=== PATIENT | female | born 1965 | race Caucasian/White ===

== ENCOUNTER 2018-09-27 19:43 | Inpatient (IN) | payer MEDICAID ==
[~2018-09-27] VITALS: Ht 162.6 cm; Wt 71.2 kg
[2018-09-27 19:45] VITALS: BP_SYST 140
[2018-09-27] MEDS ORDERED: LORazepam 2 MG/ML VIAL (FOR ER USE) IM ONE (20:15)
[2018-09-27 20:42] LABS: BLOOD, URINE 2+ (NEGATIVE); CLARITY/URINE SL CLOUDY (CLEAR); GLUCOSE,URINE NEGATIVE (NEGATIVE); KETONES,URINE 1+ (NEGATIVE); NITRITE, URINE NEGATIVE (NEGATIVE); PH,URINE 6.5 (5.0-8.0); PROTEIN URINE 2+ (NEGATIVE)
[2018-09-27 20:56] LABS: BILIRUBIN,URINE NEGATIVE (NEGATIVE); COLOR,URINE AMBER (YELLOW); LEUKOCYTE ESTERASE ,URINE 1+ (NEGATIVE)
[2018-09-27 20:57] LABS: RBC,URINE 0-3 /HPF (0-3)
[2018-09-27 20:58] LABS: BACTERIA,URINE MANY /HPF (None Seen); MUCUS,URINE None Seen /LPF (None Seen)
[2018-09-27 21:04] LABS: BARBITURATE, URINE NEGATIVE (NEG <=200); BENZODIAZEPINE, URINE NEGATIVE (NEG <=150); CANNABINOID, URINE NEGATIVE (NEG <=50); COCAINE, URINE NEGATIVE (NEG <=150); METHAMPHETAMINES SCREEN,URINE NEGATIVE (NEG <=500); OPIATE, URINE NEGATIVE (NEG <=100); PHENCYCLIDINE SCREEN,URINE NEGATIVE (NEG <=25); UR TRICYCLIC ANTIDEPRESSANTS POSITIVE (NEG <=300); URINE AMPHETAMINE POSITIVE (NEG <=500); URINE METHADONE NEGATIVE (NEG <=200); URINE OXYCODONE SCREEN NEGATIVE (NEG <=100); URINE PROPOXYPHENE SCREEN NEGATIVE (NEG <=300)
[2018-09-27 21:11] LABS: ANION GAP 13 (5-15); BASOPHILS % (AUTO) 0.4 % (0.0-2.0); CALCIUM 9.6 mg/dL (8.4-11.0); CHLORIDE 106 mmol/L (98-107); CREATININE 0.96 mg/dL (0.55-1.30); EOSINOPHILS % (AUTO) 0.1 % (0.0-4.0); GLUCOSE 169 mg/dL (70-99); HEMATOCRIT 28.3 % (36-48); HEMOGLOBIN 9.1 g/dL (12.0-16.0); LYMPHOCYTES # (AUTO) 0.9 K/uL (1.0-5.5); LYMPHOCYTES % (AUTO) 7.6 % (20.5-51.5); MEAN CORPUSCULAR HEMOGLOBIN 21 pg (27-31); MEAN CORPUSCULAR HGB CONC 32 % (32-36); MEAN CORPUSCULAR VOLUME 66 fL (79.0-98.0); MONOCYTES # (AUTO) 0.9 K/uL (0.0-1.0); MONOCYTES % (AUTO) 7.3 % (1.7-9.3); NEUTROPHILS % (AUTO) 84.6 % (40.0-70.0); PLATELET COUNT (AUTO) 273 K/uL (130-430); RED BLOOD CELL COUNT(AUTO) 4.31 MIL/uL (4.2-6.2); SODIUM SERUM 145 mmol/L (136-145); UREA NITROGEN, BLOOD 41 mg/dL (8-21); WHITE BLOOD COUNT (AUTO) 11.8 K/uL (4.8-10.8)
[2018-09-27 21:14] LABS: GFR AFRICAN AMERICAN 78 mL/min (>90); POTASSIUM 2.9 mmol/L (3.5-5.1)
[2018-09-27 21:17] LABS: ALANINE AMINOTRANSFERASE 98 U/L (12-78); ALBUMIN 4.2 g/dL (3.4-4.8); ASPARTATE AMINOTRANSFERASE 181 U/L (10-37)
[2018-09-27 21:21] LABS: ACETAMINOPHEN < 1 ug/mL (1-30); ALCOHOL, BLOOD < 3 mg/dL (<10)
[2018-09-28] MEDS ORDERED: POTASSIUM CHLORIDE 20 MEQ TAB.PRT.SR PO ONE ×2 (06:15→14:30)
[2018-09-28] MEDS ORDERED: cefTRIAXone 1 GM VIAL IM ONE (06:30)
[2018-09-28] MEDS ORDERED: NACL 0.9% 1,000 ML IV ONE (10:15)
[2018-09-28] MEDS ORDERED: LORazepam 2 MG/ML VIAL (FOR ER USE) IVP ONE ×2 (10:45→12:00)
[2018-09-28] MEDS ORDERED: DIPHENHYDRAMINE INJ 50 MG/ML VIAL IM ONE (12:00)
[2018-09-28 13:50] VITALS: BP_SYST 129
[2018-09-28] MEDS ORDERED: THIAMINE HCL 100 MG TABLET PO ONE (14:30)
[2018-09-28] MEDS ORDERED: LORazepam 1 MG TABLET PO ONE (14:30)
[2018-09-28] MEDS ORDERED: LORazepam 2 MG/ML VIAL IVP PRN (14:30)
[2018-09-28 15:02] LABS: CALCIUM 9.1 mg/dL (8.4-11.0); CREATININE 0.66 mg/dL (0.55-1.30); POTASSIUM 3.3 mmol/L (3.5-5.1)
[2018-09-28 15:06] LABS: BASOPHILS % (AUTO) 0.5 % (0.0-2.0); EOSINOPHILS # (AUTO) 0.2 K/uL (0.0-0.4); EOSINOPHILS % (AUTO) 2.8 % (0.0-4.0); HEMATOCRIT 28.4 % (36-48); HEMOGLOBIN 9.1 g/dL (12.0-16.0); LYMPHOCYTES # (AUTO) 1.5 K/uL (1.0-5.5); LYMPHOCYTES % (AUTO) 18.7 % (20.5-51.5); MEAN CORPUSCULAR HEMOGLOBIN 21 pg (27-31); MEAN CORPUSCULAR HGB CONC 32 % (32-36); MEAN CORPUSCULAR VOLUME 66 fL (79.0-98.0); MONOCYTES # (AUTO) 0.6 K/uL (0.0-1.0); MONOCYTES % (AUTO) 6.8 % (1.7-9.3); NEUTROPHILS # (AUTO) 5.9 K/uL (1.8-7.7); NEUTROPHILS % (AUTO) 71.2 % (40.0-70.0); PLATELET COUNT (AUTO) 263 K/uL (130-430); RED CELL DISTRIBUTION WIDTH 17.2 % (9.0-15.0); WHITE BLOOD COUNT (AUTO) 8.3 K/uL (4.8-10.8)
[2018-09-28] MEDS: LR 1,000 ML IV SCH (15:23)
[2018-09-28] MEDS: QUEtiapine FUMARATE 25 MG TABLET PO SCH (18:31)
[2018-09-28 20:00] VITALS: BP_SYST 122
[2018-09-28] MEDS: LORazepam 1 MG TABLET PO SCH (20:06)
[2018-09-28] MEDS: POTASSIUM CHLORIDE 20 MEQ TAB.PRT.SR PO SCH (20:07)
[2018-09-29 00:10] VITALS: BP_SYST 110
[2018-09-29] MEDS: LR 1,000 ML IV SCH ×3 (00:44→21:41)
[2018-09-29 06:07] LABS: ALBUMIN 2.9 g/dL (3.4-4.8); CALCIUM 8.4 mg/dL (8.4-11.0); CREATININE 0.64 mg/dL (0.55-1.30); FREE T4 (FREE THYROXINE) 0.6 ng/dL (0.6-1.6); POTASSIUM 3.6 mmol/L (3.5-5.1); TOTAL BILIRUBIN 0.8 mg/dL (0.0-1.0)
[2018-09-29 06:10] LABS: BASOPHILS % (AUTO) 0.7 % (0.0-2.0); EOSINOPHILS # (AUTO) 0.4 K/uL (0.0-0.4); EOSINOPHILS % (AUTO) 6.8 % (0.0-4.0); HEMATOCRIT 29.1 % (36-48); HEMOGLOBIN 9.3 g/dL (12.0-16.0); LYMPHOCYTES # (AUTO) 1.5 K/uL (1.0-5.5); LYMPHOCYTES % (AUTO) 26.5 % (20.5-51.5); MEAN CORPUSCULAR HEMOGLOBIN 21 pg (27-31); MEAN CORPUSCULAR HGB CONC 32 % (32-36); MEAN CORPUSCULAR VOLUME 66 fL (79.0-98.0); MONOCYTES # (AUTO) 0.5 K/uL (0.0-1.0); NEUTROPHILS # (AUTO) 3.2 K/uL (1.8-7.7); PLATELET COUNT (AUTO) 248 K/uL (130-430); RED BLOOD CELL COUNT(AUTO) 4.38 MIL/uL (4.2-6.2); RED CELL DISTRIBUTION WIDTH 17.3 % (9.0-15.0)
[2018-09-29 06:56] LABS: WHITE BLOOD COUNT (AUTO) 5.6 K/uL (4.8-10.8)
[2018-09-29 08:19] VITALS: BP_SYST 110
[2018-09-29] MEDS: POTASSIUM CHLORIDE 20 MEQ TAB.PRT.SR PO SCH ×2 (08:23→21:42)
[2018-09-29] MEDS: FOLIC ACID 1 MG TABLET PO SCH (08:23)
[2018-09-29] MEDS: THIAMINE HCL 100 MG TABLET PO SCH (08:23)
[2018-09-29] MEDS: LORazepam 1 MG TABLET PO SCH ×2 (08:24→21:42)
[2018-09-29 13:13] VITALS: BP_SYST 129
[2018-09-29] MEDS ORDERED: CIPROFLOXACIN HCL 500 MG TABLET PO ONE (13:30)
[2018-09-29] MEDS: cefTRIAXone 1 GM in D5W 50 ML IV SCH (14:04)
[2018-09-29 17:08] VITALS: BP_SYST 134
[2018-09-29] MEDS: QUEtiapine FUMARATE 25 MG TABLET PO SCH ×2 (17:33→21:42)
[2018-09-29 21:24] VITALS: BP_SYST 130
[2018-09-29] MEDS: CIPROFLOXACIN HCL 500 MG TABLET PO SCH (21:42)
[2018-09-30 00:46] VITALS: BP_SYST 124
[2018-09-30] MEDS: LR 1,000 ML IV SCH (06:59)
[2018-09-30 07:58] VITALS: BP_SYST 134
[2018-09-30] MEDS: FOLIC ACID 1 MG TABLET PO SCH (08:46)
[2018-09-30] MEDS: THIAMINE HCL 100 MG TABLET PO SCH (08:46)
[2018-09-30] MEDS: POTASSIUM CHLORIDE 20 MEQ TAB.PRT.SR PO SCH ×2 (08:46→20:12)
[2018-09-30] MEDS: LORazepam 1 MG TABLET PO SCH ×2 (08:47→20:13)
[2018-09-30] MEDS: CIPROFLOXACIN HCL 500 MG TABLET PO SCH (09:20)
[2018-09-30 12:46] VITALS: BP_SYST 137
[2018-09-30] MEDS: cefTRIAXone 1 GM in D5W 50 ML IV SCH (14:00)
[2018-09-30] MEDS: traMADol HCL HCL 50 MG TABLET (ULTRAM) PO PRN (14:38)
[2018-09-30 16:51] VITALS: BP_SYST 116
[2018-09-30] MEDS ORDERED: FAMOTIDINE 20 MG TABLET PO ONE (17:30)
[2018-09-30] MEDS ORDERED: MAG-AL HYDROX/SIMETH 30 ML UDC PO PRN (17:30)
[2018-09-30] MEDS ORDERED: MAG-AL HYDROX/SIMETH 30 ML UDC PO ONE (17:30)
[2018-09-30 20:00] VITALS: BP_SYST 123
[2018-09-30] MEDS: CEPHALEXIN 250 MG/5 ML, 100 ML BTL PO SCH (20:01)
[2018-09-30] MEDS: FAMOTIDINE 20 MG TABLET PO SCH (20:13)
[2018-09-30] MEDS: QUEtiapine FUMARATE 25 MG TABLET PO SCH (20:13)
[2018-10-01] MEDS: CEPHALEXIN 250 MG/5 ML, 100 ML BTL PO SCH ×4 (00:42→17:21)
[2018-10-01 00:45] VITALS: BP_SYST 113
[2018-10-01 07:18] LABS: BASOPHILS % (AUTO) 0.9 % (0.0-2.0); EOSINOPHILS # (AUTO) 0.3 K/uL (0.0-0.4); EOSINOPHILS % (AUTO) 7.5 % (0.0-4.0); HEMATOCRIT 32.9 % (36-48); HEMOGLOBIN 10.5 g/dL (12.0-16.0); LYMPHOCYTES # (AUTO) 1.1 K/uL (1.0-5.5); LYMPHOCYTES % (AUTO) 24.6 % (20.5-51.5); MEAN CORPUSCULAR HEMOGLOBIN 21 pg (27-31); MEAN CORPUSCULAR HGB CONC 32 % (32-36); MEAN CORPUSCULAR VOLUME 66 fL (79.0-98.0); MONOCYTES # (AUTO) 0.5 K/uL (0.0-1.0); NEUTROPHILS # (AUTO) 2.6 K/uL (1.8-7.7); PLATELET COUNT (AUTO) 286 K/uL (130-430); RED BLOOD CELL COUNT(AUTO) 4.99 MIL/uL (4.2-6.2); RED CELL DISTRIBUTION WIDTH 17.3 % (9.0-15.0); WHITE BLOOD COUNT (AUTO) 4.6 K/uL (4.8-10.8)
[2018-10-01 07:30] LABS: ALBUMIN 3.3 g/dL (3.4-4.8); CALCIUM 9.1 mg/dL (8.4-11.0); CREATININE 0.62 mg/dL (0.55-1.30); POTASSIUM 3.9 mmol/L (3.5-5.1); TOTAL BILIRUBIN 0.5 mg/dL (0.0-1.0)
[2018-10-01 07:38] VITALS: BP_SYST 121
[2018-10-01] MEDS: FAMOTIDINE 20 MG TABLET PO SCH ×2 (08:12→20:04)
[2018-10-01] MEDS: POTASSIUM CHLORIDE 20 MEQ TAB.PRT.SR PO SCH ×2 (08:12→20:04)
[2018-10-01] MEDS: THIAMINE HCL 100 MG TABLET PO SCH (08:12)
[2018-10-01] MEDS: FOLIC ACID 1 MG TABLET PO SCH (08:12)
[2018-10-01] MEDS: LORazepam 1 MG TABLET PO SCH ×2 (08:12→20:04)
[2018-10-01] MEDS: traMADol HCL HCL 50 MG TABLET (ULTRAM) PO PRN (08:16)
[2018-10-01 16:07] VITALS: BP_SYST 133
[2018-10-01 19:55] VITALS: BP_SYST 136
[2018-10-01] MEDS: QUEtiapine FUMARATE 25 MG TABLET PO SCH (20:05)
[2018-10-02] MEDS: CEPHALEXIN 250 MG/5 ML, 100 ML BTL PO SCH ×3 (00:18→12:17)
[2018-10-02 01:19] VITALS: BP_SYST 112
[2018-10-02] MEDS: traMADol HCL HCL 50 MG TABLET (ULTRAM) PO PRN (06:47)
[2018-10-02 08:00] VITALS: BP_SYST 113
[2018-10-02] MEDS: THIAMINE HCL 100 MG TABLET PO SCH (09:13)
[2018-10-02] MEDS: FAMOTIDINE 20 MG TABLET PO SCH (09:13)
[2018-10-02] MEDS: FOLIC ACID 1 MG TABLET PO SCH (09:13)
[2018-10-02] MEDS: LORazepam 1 MG TABLET PO SCH (09:13)
[2018-10-02] MEDS: POTASSIUM CHLORIDE 20 MEQ TAB.PRT.SR PO SCH (09:13)
[2018-10-02 12:30] VITALS: BP_SYST 106
[2018-10-02 12:43] VITALS: BP_SYST 113
[2018-10-02] MEDS ORDERED: CEPH-568 PO ×2 (12:50→12:54)
[2018-10-02] MEDS ORDERED: THIA100T73 PO ×3 (12:51→12:55)
[2018-10-02] MEDS ORDERED: FOLI-43 PO ×2 (12:52→12:55)
== END 2018-10-02 13:30 | disposition home or self-care (01) | DRG 52 ==
LOC: SED 19:43 → STU 09-28 10:10 → SMU 09-29 13:32
PROVIDERS: ADMIT Internal Medicine; ATTEND Internal Medicine
DX: G92 Toxic encephalopathy (principal); R65.10 Systemic inflammatory response syndrome (SIRS) of non-infectious origin without acute organ dysfunction; E86.0 Dehydration; F15.10 Other stimulant abuse, uncomplicated; F29 Unspecified psychosis not due to a substance or known physiological condition; F31.9 Bipolar disorder, unspecified; F41.9 Anxiety disorder, unspecified; E87.6 Hypokalemia; N39.0 Urinary tract infection, site not specified; B96.20 Unspecified Escherichia coli [E. coli] as the cause of diseases classified elsewhere; Z91.5 Personal history of self-harm; Z59.0 Homelessness
CPT/HCPCS: 36415; 70450-TC; 71045; 74018; 80048; 80053; 80307; 81000-TC; 82140-TC; 82272; 83735-TC; 84132-TC; 84439; 85025; 87086; 87186-TC; 97116-GP; 97530-GP; G0378; G0480; G0481; G0482; J0696; J1200; J2060; J7030; J7060; J7120